=== PATIENT | female | born 1980 | race African-American/Black ===

== ENCOUNTER 2017-01-29 08:51 | Emergency (ER) | payer BC ==
[~2017-01-29] VITALS: Ht 160 cm; Wt 79.5 kg
[2017-01-29 09:41] LABS: HEMATOCRIT 36.8 % (37.0-47.0); HEMOGLOBIN 12.4 g/dl (12.0-16.0); IMMATURE GRANULOCYTES 0.3 % (0.0-1.0); MEAN CELL VOLUME 94.1 fL CALC (80.0-100.0); MEAN CORPUSCULAR HGB 31.7 pG CALC (26.0-32.0); MEAN CORPUSCULAR HGB CONC 33.7 g/L CALC (32.0-36.0); NEUT# 6.8 thou/uL (2.00-7.15); RED BLOOD COUNT 3.91 mill/uL (4.20-5.60); RED CELL DISTRI WIDTH 13.1 % (11.5-15.5)
[2017-01-29 09:57] LABS: ALBUMIN 4.3 g/dL (3.2-5.0); ALKALINE PHOSPHATASE 67 u/l (38-126); ANION GAP 16 (6-22 (CALC)); BUN 10 mg/dL (7-17); BUN/CREATININE RATIO 15 (12-20 (CALC)); CALCIUM 9.3 mg/dL (8.4-10.2); CARBON DIOXIDE 26 mmol/l (22-30); CHLORIDE 103 mmol/l (95-108); CREATININE 0.6 mg/dL (0.5-1.0); GFR > 60 ML/MIN (>=60 (CALC)); GFR FOR AFR.AMER. > 60 ML/MIN (>=60 (CALC)); GLUCOSE 73 mg/dL (65-105); LIPASE 568 u/l (23-300); POTASSIUM 4.3 mmol/l (3.5-5.1); SGOT/AST 32 u/l (14-36); SGPT/ALT 47 u/l (9-52); SODIUM 141 mmol/l (137-146); TOTAL PROTEIN 8.4 g/dL (6.3-8.2)
[2017-01-29 10:11] LABS: D-DIMER 0.67 mg/L (0.19-0.60); INTERNATIONAL NORMALIZED RATIO 0.9 RATIO (0.7-1.3); PROTHROMBIN TIME 10.1 SECONDS (9.0-12.5)
[2017-01-29 11:20] LABS: URINE BILIRUBIN - DIPSTICK NEGATIVE (NEGATIVE); URINE BLOOD DIPSTICK NEGATIVE (NEGATIVE); URINE CLARITY CLEAR; URINE COLOR YELLOW; URINE GLUCOSE - DIPSTICK NEGATIVE (NEGATIVE); URINE KETONE NEGATIVE (NEGATIVE); URINE LEUK ESTERASE NEGATIVE (NEGATIVE); URINE NITRITE - DIPSTICK NEGATIVE (Negative); URINE PROTEIN - DIPSTICK NEGATIVE (NEG-TRACE)
[2017-01-29 13:58] VITALS: BP 118/60
[2017-01-29] MEDS ORDERED: CLINDAMYCIN300 M1 PO (14:15)
== END 2017-01-29 14:26 | disposition home or self-care (01) | DRG 602 ==
LOC: ED 08:51
PROVIDERS: Family Medicine
PROC: 0H9CXZZ Drainage of Left Upper Arm Skin, External Approach (ICD-10-PCS; principal; 2017-01-29)
DX: L02.412 Cutaneous abscess of left axilla (principal); K85.90 Acute pancreatitis without necrosis or infection, unspecified; I26.99 Other pulmonary embolism without acute cor pulmonale; B96.4 Proteus (mirabilis) (morganii) as the cause of diseases classified elsewhere; R07.9 Chest pain, unspecified
CPT/HCPCS: Q9967